=== PATIENT | female | born 1985 | race Hispanic/Latino ===

== ENCOUNTER 2021-04-01 14:48 | Emergency (ER) | payer SELFPAY ==
[2021-04-01] MEDS ORDERED: Ondansetron ODT 4 MG TAB ONE (15:15)
[2021-04-01 15:37] LABS: Bilirubin Negative (Negative); Blood, Urine Negative (Negative); Clarity Clear (Clear); Glucose, Urine (Dipstick) Negative (Negative); Ketone, Urine 15 mg/dL (Negative); Leukocyte Negative (Negative); Nitrite Negative (Negative); Protein, Urine (Dipstick) Trace mg/dL (Neg-Trace); Urobilinogen 0.2 mg/dL (Less than 2); pH, Urine 7.5 (5.0-9.0)
[2021-04-01 15:42] LABS: BHCG - Serum Negative (NEGATIVE); Pregs Control Bar Appear? YES (CONTROL BAR)
[2021-04-01 15:53] LABS: Anion Gap 14 mmol/L (10-20); BUN (Urea Nitrogen) 8 mg/dL (7.0-18.7); Calc. Creatinine Clearance 0 mL/min (70-130); Carbon Dioxide 21 mmol/L (22-29); Chloride 105 mmol/L (98-107); Sodium 136 mmol/L (136-145)
[2021-04-01 15:54] LABS: ALT (SGPT) 16 U/L (8-55); AST (SGOT) 22 U/L (5-34); Albumin 4.2 g/dL (3.5-5.0); Alkaline Phosphatase 56 U/L (40-110); Bilirubin, Total 0.4 mg/dL (0.2-1.2); Calcium 8.4 mg/dL (7.8-10.44); Globulin 3.4 g/dL (2.4-3.5); Glucose 122 mg/dL (70-105); Lipase 35 U/L (8-78); Protein, Total 7.6 g/dL (6.0-8.3)
[2021-04-01] MEDS ORDERED: Mag-Al Plus 1200 MG/1200 MG/120 MG/30 ML UDCUP ONE (15:54)
[2021-04-01] MEDS ORDERED: Dicyclomine 20 MG TAB ONE (15:54)
[2021-04-01] MEDS ORDERED: Lidocaine Viscous Sol 2% 15 ml UD Cup ONE (15:54)
[2021-04-01] MEDS ORDERED: Sucralfate 1 GM TAB ONE (15:54)
[2021-04-01 15:58] LABS: #Basophils 0.1 thou/uL (0.0-0.2); #Monocytes 0.4 thou/uL (0.11-0.59); #Neutrophils 4.3 thou/uL (1.40-6.50); %Lymphocytes 22.9 % (21.0-51.0); %Monocytes 6.9 % (0.0-10.0); %Neutrophils 69.1 % (42.0-75.0); Anisocytosis MODERATE=16-30 cells (100X) (0-5/hpf); Hemoglobin 7.8 g/dL (12.0-16.0); Hypochromia MODERATE=16-30 cells (100X) (0-5/hpf); MDiff Complete? YES; Mean Corpuscular HGB CONC 25.4 g/dL (32.0-36.0); Mean Corpuscular Hemoglobin 15.1 pg (27.0-31.0); Mean Corpuscular Volume 59.5 fL (78.0-98.0); Mean Platelet Volume 5.9 fL (7.4-10.4); Microcytosis MODERATE=15-30 cells (100X) (0-5/hpf); Platelet Count 514 thou/uL (130-400); Red Blood Cell (RBC) Count 5.13 mill/uL (4.20-5.40); White Blood Cell (WBC) Count 6.2 thou/uL (4.8-10.8)
== END 2021-04-01 17:02 | disposition home or self-care (01) ==
LOC: NAV ERS 14:48
DX: K21.9 Gastro-esophageal reflux disease without esophagitis (principal); E03.9 Hypothyroidism, unspecified; Z79.899 Other long term (current) drug therapy
CPT/HCPCS: 80053; 81003; 83690; 84703; 85025; 99284; Q0162